=== PATIENT | female | born 1980 | race Caucasian/White ===

== ENCOUNTER 2018-03-01 21:56 | Emergency (ER) | payer MEDICAID ==
[~2018-03-01] VITALS: Ht 170.2 cm; Wt 81.6 kg
[~2018-03-01 21:56] MED LIST: ALBU17AE26 IH; FERR-69 PO; LORA-259 PO; PREN1TAB49 PO; [UNRECOGNIZED DRUG - OTHER] PO; motrin
[2018-03-01 22:00] VITALS: BP_SYST 103
[2018-03-01] MEDS ORDERED: NACL 0.9% 1,000 ML IV ONE (22:00)
[2018-03-01] MEDS ORDERED: MAGNESIUM SULFATE 50 ML IV ONE (22:00)
[2018-03-01] MEDS ORDERED: IPRATROPIUM/ALBUTEROL SULFATE 3 ML AMPUL.NEB INH ONE (22:00)
[2018-03-01] MEDS ORDERED: methylPREDNISolone SOD SUCC/PF 62.5 MG/ML VIAL IVP ONE (22:00)
[2018-03-01 23:35] VITALS: BP_SYST 121
== END 2018-03-01 23:33 | disposition home or self-care (01) ==
LOC: SED 21:56
DX: J45.901 Unspecified asthma with (acute) exacerbation (principal); G43.909 Migraine, unspecified, not intractable, without status migrainosus; Z88.8 Allergy status to other drugs, medicaments and biological substances; Z79.899 Other long term (current) drug therapy
CPT/HCPCS: 71045; 94640; 96365; 96375; 99284; J2930; J3475; J7030; J7620

== ENCOUNTER 2020-02-06 20:39 | Emergency (ER) | payer SELFPAY ==
[~2020-02-06] VITALS: Ht 154.9 cm; Wt 46.3 kg
[2020-02-06 20:39] VITALS: BP_SYST 112
--- NOTE | 2020-02-06 20:39 | NUR ---
Pt emi ECHEVERRIA to hallway 1 for evaluation
--- NOTE | 2020-02-06 20:55 | NUR ---
BRANDEN TO ASSUME CARE. PT CALM, ALERT, RESP UNLABORED, SKIN WARM AND DRY. PD HAS HER IN CUSTODY. PT IS CALM AND COOPERATIVE. COMMUNICATES CLEARLY IN FULL COMPLETE SENTENCES
--- NOTE | 2020-02-06 21:15 | NUR ---
DR GIRALDO IN TO ASSESS
--- NOTE | 2020-02-06 21:50 | NUR ---
Patient given written and verbal discharge instructions and verbalizes understanding. ER MD discussed with patient the results and treatment provided. Patient in stable condition. ID arm band removed. Patient educated on pain management and to follow up with PMD. Pain Scale [0/10. Opportunity for questions provided and answered. Medication side effect fact sheet provided.
[2020-02-06 21:53] VITALS: BP_SYST 112
== END 2020-02-06 21:50 ==
LOC: SED 20:39
DX: Z02.89 Encounter for other administrative examinations (principal); G43.909 Migraine, unspecified, not intractable, without status migrainosus; J45.909 Unspecified asthma, uncomplicated; Z79.899 Other long term (current) drug therapy; Z88.8 Allergy status to other drugs, medicaments and biological substances
CPT/HCPCS: 99283